=== PATIENT | female | born 1985 | race Caucasian/White ===

== ENCOUNTER 2016-10-14 13:06 | Emergency (ER) | payer MEDICAID ==
--- NOTE | 2016-10-14 13:27 | EDPHY ---
H & P Stated Complaint: ABD PAIN Time Seen by Provider: 10/14/16 13:27 HPI/ROS: CHIEF COMPLAINT: Abdominal pain, vomiting. HISTORY OF PRESENT ILLNESS: The patient is a 31-year-old female with a history of cholecystectomy presenting with epigastric pain, bloating, and vomiting for 4 days. Symptoms did mildly improve yesterday but have returned. The pain radiates straight through to her back. Vomiting briefly resolves the abdominal pain. Eating worsens it. She denies fever, chills, chest pain, recent sickness, shortness of breath, palpitations, diarrhea, urinary complaints, headache, lightheadedness, rash, peripheral edema. She was seen in the emergency department in August for the same symptoms. They ended up resolving on their own. REVIEW OF SYSTEMS: Aside from elements discussed in the HPI, a comprehensive 10-point review of systems was reviewed and is negative. PAST MEDICAL HISTORY: Cholecystectomy, ulcers, depression, . SOCIAL HISTORY: Smoker, uses marijuana, no alcohol use. VITAL SIGNS: Reviewed by me GENERAL: Well-developed, well-nourished, resting comfortably in no respiratory distress. HEENT: Atraumatic. Eyes: No icterus, no injection. Mouth: moist mucous membranes. No erythema or lesions. Neck: supple with no adenopathy. LUNGS: Clear to auscultation bilaterally, no wheezes, rhonchi or rales. CARDIAC: Regular rate and rhythm, no rubs, murmurs or gallops. ABDOMEN: Epigastric and RUQ tenderness. Soft, nondistended, bowel sounds normal. No guarding, no rebound. Hyperactive bowel sounds. BACK: No CVA tenderness. EXTREMITIES: No trauma. No edema. Range of motion is normal throughout. NEURO: Alert and oriented, grossly nonfocal. SKIN: Warm and dry, no rash. PSYCHIATRIC: Normal mentation, no agitation. Portions of this note were transcribed by a certified medical assistant. I personally performed a history, physical exam, medical decision making, and confirmed accuracy of information the transcribed note. Source: Patient Exam Limitations: No limitations - Personal History Current Tetanus/Diphtheria Vaccine: Yes - Medical/Surgical History Hx Asthma: No Hx Chronic Respiratory Disease: No Hx Diabetes: No Hx Cardiac Disease: No Hx Renal Disease: No Hx Cirrhosis: No Hx Alcoholism: No Hx HIV/AIDS: No Hx Splenectomy or Spleen Trauma: No Other PMH: SHABNAM, BILATERAL EXT FIX'S FOR CONGENITAL DEFORMITIES, [id number] DISSECANS, depression, - Social History Smoking Status: Current every day smoker Constitutional: Initial Vital Signs Temperature (C) 36.6 C 10/14/16 13:10 Heart Rate 112 H 10/14/16 13:10 Respiratory Rate 16 10/14/16 13:10 Blood Pressure 126/100 H 10/14/16 13:10 O2 Sat (%) 97 10/14/16 13:10 O2 Delivery Mode Room Air O2 (L/minute) 2 Allergies/Adverse Reactions: Penicillins Allergy (Verified 08/25/16 19:46) Sulfa (Sulfonamide Antibiotics) Allergy (Verified 08/25/16 19:46) Home Medications: Medication Instructions Recorded Ondansetron Odt [Zofran Odt] 4 mg PO Q6-8PRN PRN #8 tab 08/23/16 Cephalexin [Keflex] 500 mg PO BID 5 Days 08/24/16 Lorazepam [Ativan] 1 mg PO Q8 PRN #6 tablet 10/14/16 Ondansetron Odt [Zofran Odt 4 mg 4 mg PO Q6 PRN #8 tab 10/14/16 (RX)] Medical Decision Making - Diagnostics Imaging: Study: CT of the abdomen. Indication: Pain, vomiting. Results: No small bowel obstruction. Fecalization of small bowel. The study was read by the radiologist, Dr. Rice. I viewed the images myself on the PACS system. ED Course/Re-evaluation: An IV was established and labs ordered. 1L IV saline administered for hydration , along with 4mg IV Zofran for nausea and 100mcg IV Fentanyl for pain. Abdominal CT ordered. WBC elevated at 11.53. Urine demonstrates significant dehydration, specific gravity > 1.035 1500: CT reported to me by Dr. Rice shows no obstruction, only fecalization of small bowel. 1539: Reassessed patient. Discussed results of laboratory studies and CT scan. She is not feeling better. She is still in pain with nausea and vomiting. 1mg IV Ativan administered. Reassess after additional fluids and meds. Symptoms improved greatly. Comfortable being discharged with follow up. Looks well. Differential Diagnosis: After obtaining the patients history and performing an examination, differential diagnosis considered included but was not limited to appendicitis, small bowel obstruction, cyclic vomiting, gastritis, pancreatitis, kidney stones, urinary tract infections and other causes. - Data Points Laboratory Results: Laboratory Results 10/14/16 13:25 10/14/16 13:25 Medications Given: Discontinued Medications Fentanyl (Sublimaze) 100 mcg IVP EDNOW ONE Stop: 10/14/16 13:42 Last Admin: 10/14/16 13:47 Dose: 100 mcg Sodium Chloride (Ns) 1,000 mls @ 0 mls/hr IV ONCE ONE PRN Reason: Wide Open Stop: 10/14/16 13:31 Last Admin: 10/14/16 13:32 Dose: 1,000 mls Lorazepam (Ativan Injection) 1 mg IVP EDNOW ONE Stop: 10/14/16 15:40 Last Admin: 10/14/16 15:45 Dose: 1 mg Ondansetron HCl (Zofran) 4 mg IVP EDNOW ONE Stop: 10/14/16 13:31 Last Admin: 10/14/16 13:33 Dose: 4 mg Ondansetron HCl (Zofran) 4 mg IVP EDNOW ONE Stop: 10/14/16 15:23 Last Admin: 10/14/16 15:27 Dose: 4 mg Ondansetron HCl (Zofran Odt 4 Mg Prepack#2) 1 btl TAKEHOME EDNOW ONE Stop: 10/14/16 16:33 Last Admin: 10/14/16 16:34 Dose: 1 btl Departure - Departure Disposition: Home, Routine, Self-Care Clinical Impression: Abdominal pain, Constipation, Dehydration Condition: Good Instructions: Acute Nausea and Vomiting (ED), Acute Abdominal Pain (ED), Cannabis Abuse (ED), Obstipation (ED) Additional Instructions: Okay to use Zofran as needed for recurrent nausea. You have also been given a prescription for a few Ativan tablets to use as needed for nausea. Take the magnesium citrate as directed. Drink half of the bottle now. If you do not have significant stool output within 4 hours, you may drink the other half. For your [abdominal pain and vomiting], I suggested you start with a bland diet and advance as tolerated. This means start with clear liquids such as water, Gatorade, juice, flat non- caffeinated soda. If you tolerate clear liquids, then you may add bland foods such as bananas, rice, or toast. If you do not have any worsening of your symptoms, you may begin to resume a regular diet. Follow up with Dr. Lomeli, GI, in the next 2-3 days if symptoms are not improving. Return to the emergency department if you experience serious worsening of condition. Referrals: Matti Lomeli MD [Medical Doctor] - As per Instructions Prescriptions: Lorazepam [Ativan] 1 mg PO Q8 PRN #6 tablet PRN Reason: nausea Ondansetron Odt [Zofran Odt 4 mg (RX)] 4 mg PO Q6 PRN #8 tab PRN Reason: Nausea Report Scribed for: Mimi Marshall Report Scribed by: Francisco Gutierres Date of Report: 10/14/16 Time of Report: 13:27
[2016-10-14] MEDS ORDERED: NS 1,000 ML IV ONE (13:30)
[2016-10-14] MEDS ORDERED: ONDANSETRON 4 MG/2 ML VIAL IVP ONE ×2 (13:30→15:22)
[2016-10-14 13:40] LABS: % IMMATURE GRANULYOCYTES 0.3 % (0.0-1.1); ABSOLUTE IMMATURE GRANULOCYTES 0.04 10^3/uL (0.00-0.10); ADD DIFF? NO; ADD MORPH? NO; ADD SCAN? NO; ATYPICAL LYMPHOCYTE FLAG 10 (0-99); FRAGMENT RBC FLAG 0 (0-99); HEMATOCRIT 47.5 % (38.0-47.0); HEMOGLOBIN 15.8 g/dL (12.6-16.3); LEFT SHIFT FLG 0 (0-99); LIPEMIA HEMOLYSIS FLAG 80 (0-99); MEAN CELL HEMOGLOBIN 30.2 pg (27.9-34.1); MEAN CELL HEMOGLOBIN CONCENTR. 33.3 g/dL (32.4-36.7); MEAN CELL VOLUME 90.8 fL (81.5-99.8); MEAN PLATELET VOLUME 9.8 fL (8.7-11.7); PLATELET CLUMPS FLAG 0 (0-99); PLATELET COUNT 305 10^3/uL (150-400); RED BLOOD CELL COUNT 5.23 10^6/uL (4.18-5.33); RED CELL DISTRIBUTION WIDTH 13.7 % (11.5-15.2)
[2016-10-14] MEDS ORDERED: fentaNYL 100 MCG/2 ML INJ IVP ONE (13:41)
[2016-10-14 13:57] LABS: ALANINE AMINOTRANSFERASE 21 IU/L (9-52); ALBUMIN 3.7 g/dL (3.5-5.0); ALKALINE PHOSPHATASE 51 IU/L (38-126); ANION GAP 8 mEq/L (8-16); ASPARTATE AMINOTRANSFERASE 25 IU/L (14-46); BILIRUBIN,TOTAL 0.5 mg/dL (0.1-1.4); BILIRUBIN-CONJUGATED 0.4 mg/dL (0.0-0.5); BILIRUBIN-UNCONJUGATED 0.1 mg/dL (0.0-1.1); CALCIUM 8.6 mg/dL (8.5-10.4); CARBON DIOXIDE 23 mEq/l (22-31); CHLORIDE 111 mEq/L (97-110); CREATININE 0.6 mg/dL (0.6-1.0); GLOMERULAR FILTRATION RATE > 60; GLUCOSE 84 mg/dL (70-100); POTASSIUM 5.1 mEq/L (3.5-5.2); SODIUM 142 mEq/L (134-144); TOTAL PROTEIN 6.7 g/dL (6.3-8.2)
[2016-10-14] MEDS ORDERED: IOPAMIDOL (ISOVUE-300) 100 ML BTL IV ONE (14:31)
[2016-10-14] MEDS ORDERED: LORazepam 2 MG/ML INJ IVP ONE ×2 (15:38→15:39)
[2016-10-14] MEDS ORDERED: HYDROmorphONE/DILAUDID 1 MG/ML SYR IVP ONE (15:39)
[2016-10-14 15:54] LABS: COLOR YELLOW; LEUKOCYTE ESTERASE,URINE NEGATIVE (NEGATIVE); NITRITE,URINE NEGATIVE (NEGATIVE)
[2016-10-14 15:56] VITALS: RESP 16
--- NOTE | 2016-10-14 16:25 | CT ---
CT Scan of the Abdomen and Pelvis (With Contrast) October 14, 2016 at 1444 Hours Indication: Abdominal pain. Vomiting. History cholecystectomy. Comparison: August 2016. Technique: 90 mL of Isovue 300 were given intravenously by machine power injection. Multidetector he lical CT imaging was performed from the diaphragm to the symphysis pubis. Dose reduction techniques w ere utilized. Findings Abdomen: Mild atelectasis is seen at both lung bases. No focal liver lesion. Patient is status post c holecystectomy. Pancreas is unremarkable. Both adrenal glands are normal in size and appearance. Sple en is unremarkable. Probable renal cortical cysts are seen in both kidneys, possibly mildly complex, stable in appearance. No evidence for hydronephrosis. No significant lymphadenopathy. Pelvis: Moderate stool is seen in the colon. There is mild dilatation of the distal ileum with fecali zation of stool, suggesting constipation or less likely partial small bowel obstruction. No evidence for diverticulitis. No evidence for bladder calculus. No significant free fluid in the pelvis. Degene rative change is seen in the lumbar spine. Impression: 1. Status post cholecystectomy. Moderate constipation. 2. Probable mildly complex renal cortical cysts bilaterally, stable in appearance. Results discussed with Dr. Mimi Marshall.
[2016-10-14] MEDS ORDERED: ONDANSETRON 4MG PREPACK#2 BTL TAKEHOME ONE (16:32)
[2016-10-14 16:41] VITALS: BP 148/92; PULSE 59; TEMP 97.3; O2SAT 97
== END 2016-10-14 16:41 | disposition home or self-care (01) ==
DX: K59.00 Constipation, unspecified (principal); E86.0 Dehydration; F17.200 Nicotine dependence, unspecified, uncomplicated; Z90.49 Acquired absence of other specified parts of digestive tract
CPT/HCPCS: 96374; J2405; J3010; Q9967

== ENCOUNTER 2016-11-08 09:38 | Emergency (ER) | payer MEDICAID ==
[2016-11-08] MEDS ORDERED: NS 1,000 ML IV ONE (09:55)
[2016-11-08] MEDS ORDERED: IPRATROPIUM/ALBUTEROL 3 ML DEYVIAL IH ONE (09:55)
--- NOTE | 2016-11-08 12:16 | EDPHY ---
H & P Stated Complaint: COUGH FOR PAST 3 WEEKS, NOW COUGHING UP BLOOD HPI/ROS: Chief complaint: Cold symptoms History of present illness: This is a 31-year-old female who presents to the emergency department for evaluation of persistent cold symptoms. Patient reports she has been sick for the last 3 weeks. She has had fevers, sore throat , persistent wet cough. She denies precipitating factors. She denies alleviating factors. She denies other associated signs or symptoms including no respiratory distress, no rash. - Personal History LMP (Females 10-55): 22-28 Days Ago Current Tetanus/Diphtheria Vaccine: Yes Current Tetanus Diphtheria and Acellular Pertussis (TDAP): Yes - Medical/Surgical History Hx Asthma: No Hx Chronic Respiratory Disease: No Hx Diabetes: No Hx Cardiac Disease: No Hx Renal Disease: No Hx Cirrhosis: No Hx Alcoholism: No Hx HIV/AIDS: No Hx Splenectomy or Spleen Trauma: No Other PMH: SHABNAM, BILATERAL EXT FIX'S FOR CONGENITAL DEFORMITIES, [id number] DISSECANS, depression, - Social History Smoking Status: Current every day smoker - Physical Exam Exam: General Appearance: Alert, nontoxic. Eyes: Pupils equal and round no injection. Respiratory: Patient is talking in full sentences. There is no use of accessary muscles. No evidence of respiratory distress. A wet sounding cough is noted. There is diffuse inspiratory and expiratory wheezing without rhonchi or rales. Cardiac: regular rate and rhythm Gastrointestinal: Abdomen is soft and non tender, no masses, bowel sounds normal. Musculoskeletal: Neck is supple and non tender. Extremities have full range of motion and are non tender. Skin: No rashes or lesions. Neurological: Alert and oriented x4. Strength and sensation intact and symmetrical. No meningismus. Ambulating without difficulty. Constitutional: Initial Vital Signs Temperature (C) 37.1 C 11/08/16 09:39 Heart Rate 115 H 11/08/16 09:39 Respiratory Rate 18 11/08/16 09:39 Blood Pressure 132/86 H 11/08/16 09:39 O2 Sat (%) 97 11/08/16 09:39 O2 Delivery Mode Room Air Allergies/Adverse Reactions: Penicillins Allergy (Verified 11/08/16 09:43) Sulfa (Sulfonamide Antibiotics) Allergy (Verified 11/08/16 09:43) Home Medications: Medication Instructions Recorded AZITHROMYCIN [Z-PACK] 250 mg PO DAILY #6 tab 11/08/16 Albuterol [Ventolin Hfa Inhaler] 200 puffs IH Q4 #1 mdi 11/08/16 Guaifenesin/Codeine Phosphate 5 ml PO Q4-6PRN PRN #120 liquid 11/08/16 [Guaifenesin-Codeine Syrup] Medical Decision Making - Diagnostics Imaging: Chest x-ray unremarkable ED Course/Re-evaluation: Patient is seen under the supervision of my secondary supervising physician Dr. Diogenes Hayden. Patient presents to the emergency department for evaluation of cold symptoms. Patient is nontoxic. Chest x-ray is unremarkable. However given persistence of symptoms I will start her on antibiotics. She will be symptomatically treated with an inhaler and cough medication. She is discharged home. Home care is discussed. She is asked to follow up with a primary care doctor for recheck. Return precautions are given. Patient voiced understanding and agreement with plan. Differential Diagnosis: Included but not limited to pneumonia, bronchitis, influenza - Data Points Medications Given: Discontinued Medications Albuterol/Ipratropium (Duoneb) 3 ml IH EDNOW ONE Stop: 11/08/16 09:56 Last Admin: 11/08/16 10:01 Dose: 3 ml Sodium Chloride (Ns) 1,000 mls @ 0 mls/hr IV ONCE ONE PRN Reason: Wide Open Stop: 11/08/16 09:56 Last Admin: 11/08/16 10:02 Dose: 1,000 mls Departure - Departure Disposition: Home, Routine, Self-Care Clinical Impression: Acute bronchitis Qualifiers: Bronchitis organism: unspecified organism Qualified Code(s): J20.9 - Acute bronchitis, unspecified Condition: Good Instructions: Acute Bronchitis (ED) Additional Instructions: Follow-up with your primary care doctor for recheck If symptoms worsen or new symptoms develop return to the emergency department for recheck Referrals: [facility] [Other] - As per Instructions Stand Alone Forms: School Excuse, Work Excuse Prescriptions: Albuterol [Ventolin Hfa Inhaler] 200 puffs IH Q4 #1 mdi AZITHROMYCIN [Z-PACK] 250 mg PO DAILY #6 tab Guaifenesin/Codeine Phosphate [Guaifenesin-Codeine Syrup] 5 ml PO Q4-6PRN PRN # 120 liquid PRN Reason: Cough, Severe
[2016-11-08 12:28] VITALS: BP 127/68; PULSE 88; RESP 16; TEMP 99.3; O2SAT 96
== END 2016-11-08 12:28 | disposition home or self-care (01) ==
DX: J20.9 Acute bronchitis, unspecified (principal); F17.200 Nicotine dependence, unspecified, uncomplicated

== ENCOUNTER 2017-02-14 01:44 | Emergency (ER) | payer MEDICAID ==
--- NOTE | 2017-02-14 02:23 | EDPHY ---
H & P Stated Complaint: syncope, elbow pain LIANA under arm abcesses HPI/ROS: HPI CHIEF COMPLAINT: Multiple complaints HISTORY OF PRESENT ILLNESS: Patient very pleasant 31-year-old female significant past medical history for depression, cholecystectomy, presents to the emergency room in multiple planes. She states around 6:00 p.m. earlier today she was at the gas station she had a syncopal episode. She felt again ground with right elbow strike. No seizure activity did not lose bowel bladder incontinence did not have any chest pain or shortness of breath. Patient tells me that main complaint is right elbow pain. Additionally she reports that she has an abscess under right axilla that she gets when she gets stressed. Requesting antibiotics for this. Currently upon arrival to the emergency room she denies chest pain or shortness of breath. Denies dizziness. Denies headache or neck pain. Main complaint is right elbow pain, an abscess under right axilla. She tells me she is unsure exactly what caused her pass out earlier today. No history of syncope or sudden cardiac or cardiac arrhythmia. Patient tells me she decided come the emergency room at 2:30 a.m. in the morning after this event happened 6 o'clock tonight as her elbow is been throbbing her causing her pain. Past Medical History: Depression, previous history multiple axillary abscess. Past Surgical History: Lower extremity ex fix, cholecystectomy, right elbow surgery Social History: Endorses tobacco, denies alcohol or other illicit drugs Family History: Noncontributory ROS REVIEW OF SYSTEMS: A comprehensive 10 point review of systems is otherwise negative aside from elements mentioned in the history of present illness. Exam Constitutional triage nursing summary reviewed, vital signs reviewed, awake/ alert. Eyes normal conjunctivae and sclera, EOMI, PERRLA. HENT normal inspection, atraumatic, moist mucus membranes, no epistaxis, neck supple/ no meningismus, no raccoon eyes. Respiratory clear to auscultation bilaterally, normal breath sounds, no respiratory distress, no wheezing. Cardiovascular rate normal, regular rhythm, no murmur, no edema, distal pulses normal. Gastrointestinal soft, non-tender, no rebound, no guarding, normal bowel sounds, no distension, no pulsatile mass. Genitourinary no CVA tenderness. Musculoskeletal right elbow: Tender palpation over the olecranon, full range of motion, no significant swelling, distally right arm is neurovascular intact, no midline vertebral tenderness, full range of motion, no calf swelling, no tenderness of extremities, no meningismus, good pulses, neurovascularly intact. 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 Neurologic awake, alert and oriented x 3, AAOx3, moves all 4 extremities equally, motor intact, sensory intact, CN II-XII intact, normal cerebellar, normal vision, normal speech. Psychiatric normal mood/affect. Heme/Lymph/Immune no lymphadenopathy. Differential Diagnosis: Includes but is not limited to in a particular order, elbow fracture, elbow contusion, soft tissue injury, axillary infection, axillary abscess, hydranatis Suppurtiva. Medical Decision Making: Plan for this patient EKG due to syncope earlier, no indication for blood work given she denies chest pain or shortness of breath will x-ray her right elbow will also place her on Keflex and warm compresses for axillary infection. Re-evaluation: EKG interpretation by me on record in [employer] system. Impression time of EKG 2:30 a.m., this is sinus rhythm rate of 85 QT interval 412 QTCF: 463. No acute ischemic changes appreciated. No signs of Brugada. Will see if old EKG shows prolonged QT interval. ED x-ray right elbow: Negative for acute fracture. Image interpreted by myself. 0318: Plan for this patient this time Keflex has been given here in the emergency room for her infection under her right axilla. Keflex take-home pack. Ibuprofen for pain control. Patient be placed in a posterior long-arm splint and sling for comfort. Her x- ray did not appreciate a fracture however given the amount of pain I cannot rule out occult elbow fracture. Patient be placed in a splint follow up with Orthopedics. She understands. Source: Patient - Personal History LMP (Females 10-55): Now Current Tetanus/Diphtheria Vaccine: Yes Current Tetanus Diphtheria and Acellular Pertussis (TDAP): Yes - Medical/Surgical History Hx Asthma: Yes Hx Chronic Respiratory Disease: No Hx Diabetes: No Hx Cardiac Disease: No Hx Renal Disease: No Hx Cirrhosis: No Hx Alcoholism: No Hx HIV/AIDS: No Hx Splenectomy or Spleen Trauma: No Other PMH: SHABNAM, BILATERAL EXT FIX'S FOR CONGENITAL DEFORMITIES, [id number] DISSECANS, depression, - Social History Smoking Status: Current every day smoker Constitutional: Initial Vital Signs Temperature (C) 36.7 C 02/14/17 02:00 Heart Rate 97 02/14/17 02:00 Respiratory Rate 16 02/14/17 02:00 Blood Pressure 139/91 H 02/14/17 02:00 O2 Sat (%) 98 02/14/17 02:00 O2 Delivery Mode Room Air Allergies/Adverse Reactions: Penicillins Allergy (Verified 02/14/17 01:59) Sulfa (Sulfonamide Antibiotics) Allergy (Verified 02/14/17 01:59) Home Medications: Medication Instructions Recorded Albuterol 02/14/17 Cephalexin [Keflex] 500 mg PO Q6H #28 cap 02/14/17 Ibuprofen [Motrin (*)] 800 mg PO Q6-8PRN #7 tab 02/14/17 Medical Decision Making - Data Points Medications Given: Discontinued Medications Hydrocodone Bitart/Acetaminophen ([place] 5/325) 1 tab PO EDNOW ONE Stop: 02/14/17 02:30 Last Admin: 02/14/17 03:00 Dose: 1 tab Cephalexin HCl (Keflex) 500 mg PO EDNOW ONE PRN Reason: Protocol Stop: 02/14/17 02:30 Last Admin: 02/14/17 03:00 Dose: 500 mg Departure - Departure Disposition: Home, Routine, Self-Care Clinical Impression: Axillary abscess Elbow contusion Qualifiers: Encounter type: initial encounter Laterality: right Qualified Code(s): S50.01XA - Contusion of right elbow, initial encounter Condition: Good Instructions: Elbow Sprain (ED), Abscess (ED), Arthralgia (ED) Additional Instructions: 1. Use warm compresses 4 times a day for 20 minutes. 2. Take antibiotic as prescribed 3. Return emergency room if you have worsening symptoms includes syncope, or worsening pain. Referrals: [facility] [Other] - As per Instructions Cristofer Hdez MD [Medical Doctor] - As per Instructions Prescriptions: Cephalexin [Keflex] 500 mg PO Q6H #28 cap Ibuprofen [Motrin (*)] 800 mg PO Q6-8PRN #7 tab
[2017-02-14] MEDS ORDERED: CEPHALEXIN 500MG PREPACK#4 BTL TAKEHOME ONE (02:29)
[2017-02-14] MEDS ORDERED: HYDROCODONE/APAP 5/325 TAB PO ONE (02:29)
[2017-02-14] MEDS ORDERED: CEPHALEXIN 500 MG CAP PO ONE (02:29)
--- NOTE | 2017-02-14 02:40 | CPEKG ---
Heart Rate: 85 RR Interval: 706 P-R Interval: 176 QRSD Interval: 80 QT Interval: 412 QTC Interval: 490 P [place]: 57 QRS [place]: 41 T Wave [place]: 20 EKG Severity - BORDERLINE ECG - EKG Impression: SINUS RHYTHM EKG Impression: BORDERLINE PROLONGED QT INTERVAL Electronically Signed By: Damion Fisher 14-Feb-2017 07:31:02
[2017-02-14 03:35] VITALS: BP 106/76; PULSE 86; RESP 18; TEMP 98.2; O2SAT 95
== END 2017-02-14 04:04 | disposition home or self-care (01) ==
DX: L02.411 Cutaneous abscess of right axilla (principal); S50.01XA Contusion of right elbow, initial encounter; F17.200 Nicotine dependence, unspecified, uncomplicated; J45.909 Unspecified asthma, uncomplicated; W22.8XXA Striking against or struck by other objects, initial encounter
CPT/HCPCS: A4565

== ENCOUNTER 2017-11-02 23:53 | Emergency (ER) | payer MEDICAID ==
[2017-11-02 23:59] VITALS: BP 153/97; PULSE 98; RESP 18; TEMP 99; O2SAT 97
--- NOTE | 2017-11-03 00:13 | EDPHY ---
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 Patient states she is due doing well but has noticed for the last 2 days at her right arm as more swollen than her left. She also states she had a mechanical fall and fell onto her bilateral was earlier this evening. She is complaining of mild bilateral elbow pain and right arm swelling. No fevers or chills. Does have some redness in her antecubital fossa. She has been wearing an Jasen bandage around that elbow. No other pain or streaking. No chest pain or shortness of breath. She has been able to use bilateral arms since her injury. ROS: 10 point Review of Systems is negative except as noted in the HPI. Family History: non-contributory Physical Exam: Gen: Awake, Alert, No Distress HEENT: Nose: no rhinorrhea Eyes: PERRLA, EOMI Mouth: Moist mucosa Neck: Supple, no JVD Chest: nontender, lungs clear to auscultation Heart: S1, S2 normal, no murmur Abd: Soft, non-tender, no guarding Back: no CVA tenderness, no midline tenderness Ext: Right olecranon sutures intact. She has no reproducible bony tenderness. Full range of motion of pain. Her right forearm is 1 cm larger than her left forearm. She also has mild erythema in her antecubital fossa. There is no streaking or lymphadenopathy. Left elbow has no bony tenderness, full range of motion without pain. Skin: no rash Neuro: CN II-XII intact, Sensation grossly intact, Strength 5/5 in bilateral upper and lower extremities - Personal History LMP (Females 10-55): 8-14 Days Ago Current Tetanus/Diphtheria Vaccine: Yes Current Tetanus Diphtheria and Acellular Pertussis (TDAP): Yes - Medical/Surgical History Hx Asthma: Yes Hx Chronic Respiratory Disease: No Hx Diabetes: No Hx Cardiac Disease: No Hx Renal Disease: No Hx Cirrhosis: No Hx Alcoholism: No Hx HIV/AIDS: No Hx Splenectomy or Spleen Trauma: No Other PMH: SHABNAM, BILATERAL EXT FIX'S FOR CONGENITAL DEFORMITIES, [id number] DISSECANS, depression, - Social History Smoking Status: Current every day smoker Constitutional: Initial Vital Signs Temperature (C) 37.2 C 11/02/17 23:54 Heart Rate 98 11/02/17 23:54 Respiratory Rate 18 11/02/17 23:54 Blood Pressure 153/97 H 11/02/17 23:54 O2 Sat (%) 97 11/02/17 23:54 O2 Delivery Mode Room Air Allergies/Adverse Reactions: Penicillins Allergy (Verified 02/14/17 01:59) Sulfa (Sulfonamide Antibiotics) Allergy (Verified 02/14/17 01:59) Home Medications: Medication Instructions Recorded Ativan 0.5 mg 11/02/17 [place] 5/325 (*) 11/02/17 Medical Decision Making - Diagnostics Imaging Results: There is no evidence of DVT on her right upper extremity ultrasound per Dr. Lira. ED Course/Re-evaluation: Ultrasound is negative. Patient has no reproducible bony tenderness suggestive of fracture. She has been reassured. Will discharge with follow-up with her doctor for any concerns. Departure - Departure Disposition: Home, Routine, Self-Care Clinical Impression: Elbow pain, Arm swelling Condition: Good Instructions: Contusion in Adults (ED) Additional Instructions: Follow up with primary care physician in 3-4 days if symptoms are not improving. Referrals: [facility] [Other] - As per Instructions
== END 2017-11-03 00:56 | disposition home or self-care (01) ==
DX: S59.901A Unspecified injury of right elbow, initial encounter (principal); M79.89 Other specified soft tissue disorders; F17.200 Nicotine dependence, unspecified, uncomplicated; J45.909 Unspecified asthma, uncomplicated; W18.39XA Other fall on same level, initial encounter

== ENCOUNTER 2017-11-26 15:19 | Emergency (ER) | payer MEDICAID ==
[2017-11-26] MEDS ORDERED: KETOROLAC 30 MG/1 ML SDV IVP ONE (15:46)
[2017-11-26] MEDS ORDERED: NS 1,000 ML IV ONE (15:46)
[2017-11-26] MEDS ORDERED: DEXAMETHASONE 10 MG/ML VIAL IVP ONE (15:46)
--- NOTE | 2017-11-26 15:51 | EDPHY ---
H & P Time Seen by Provider: 11/26/17 15:40 HPI/ROS: HPI Sore throat, cough, congestion. 32-year-old female by private vehicle. She reports that she has had nasal congestion with clear rhinorrhea and a dry, mostly nonproductive cough for the last week. She reports that this morning at about 5:00 a.m. She developed a sore throat which has been worsening throughout the day. She is now having difficulty swallowing liquids because of the pain in her throat. She denies any voice changes. No stridor. No difficulty breathing. She has not had a fever. ROS: Constitutional: No fever, no chills. No weakness. Eyes: No discharge. No changes in vision. ENT: As above. Respiratory: As above. No shortness of breath. Cardiac: No chest pain, no palpitations. Gastrointestinal: No abdominal pain, no vomiting, no diarrhea. Genitourinary: No hematuria. No dysuria or increased frequency with urination. Musculoskeletal: No back pain. No neck pain. No myalgias or arthralgias. Skin: No rashes. Neurological: No headache. No focal weakness or altered sensation. Past medical history: Depression, , cholecystectomy, osteochondritis dissecans, orthopedic surgeries. Social history: Nonsmoker. Here by herself. Denies alcohol. Physical Exam: General Appearance: Alert, no distress. This patient is responding to questions appropriately and in full sentences. This patient appears well- hydrated and well-nourished. Eyes: Pupils equal and round no pallor or injection. No lid edema, erythema or injection. ENT, Mouth: Mucous membranes are moist. Diffuse pharyngeal erythema with posterior pharyngeal exudates worse on the left versus the right and scant tonsillar exudates. No asymmetry indicative of abscess. No voice changes. No stridor on auscultation of her neck. No submental, submandibular, cervical lymphadenopathy. Respiratory: There are no retractions, lungs are clear to auscultation with good air movement bilaterally. Intermittent wet sounding cough. Cardiovascular: Regular rate and rhythm. No murmur. Neurological: Motor sensory function is grossly intact. Cranial nerves are normal. Gait is normal. Skin: Warm and dry, no rashes. Musculoskeletal: Neck is supple and nontender. Extremities are symmetrical. All joints range without pain or impingement. Psychiatric: No agitation. No depression. Database: EKG: Imaging: Chest x-ray PA and lateral; the cardiac mediastinal silhouette is unremarkable. No evidence of infiltrate or pneumothorax. Mild bronchitis. No other acute cardiopulmonary disease process noted. Interpreted by me. Procedures: Emergency department course: Vital signs reviewed. The patient is mildly tachycardic and mildly tachypneic in triage. An IV was placed. Strep swab obtained. I will also evaluate her for mononucleosis. She will be started on IV normal saline with 1-2 L to be given over the next 1-2 hours. She will initially be given 30 mg of IV Toradol and 10 mg of IV Decadron. She does not have any contraindications to NSAIDs. 5:25 p.m., the patient states that she still has a sore throat but is feeling better. She was given 2 Vicodin tablets for additional analgesia. She is not driving. 5:45 p.m., patient re-evaluated. Resting comfortably at this time. Results of her diagnostic workup discussed with her. Etiology of her pharyngitis is likely viral. I do not feel that antibiotics are indicated at this time. Her tachycardia has resolved. She is not tachypneic. Repeat pharyngeal exam, no stridor. No voice changes. She is feeling much better at this time. She does feel comfortable going home and I feel she is safe for discharge. Follow-up and return to emergency department precautions reviewed with her. All of her questions were answered. She was discharged in good condition. Differential Diagnosis: The differential diagnosis on this patient includes but is not limited to mononucleosis, other viral pharyngitis, streptococcal pharyngitis, influenza. Peritonsillar abscess, retropharyngeal abscess, epiglottitis, tracheitis unlikely. This represents a partial list of diagnoses considered. These considerations are based on history, physical exam, past history, reassessment and diagnostic testing. Smoking Status: Current every day smoker Constitutional: Initial Vital Signs Temperature (C) 36.9 C 11/26/17 15:37 Heart Rate 102 H 11/26/17 15:37 Respiratory Rate 24 H 11/26/17 15:37 Blood Pressure 149/88 H 11/26/17 15:37 O2 Sat (%) 95 11/26/17 15:37 O2 Delivery Mode Room Air Allergies/Adverse Reactions: Penicillins Allergy (Verified 11/26/17 15:35) Sulfa (Sulfonamide Antibiotics) Allergy (Verified 11/26/17 15:35) Home Medications: Medication Instructions Recorded Ativan 0.5 mg 11/02/17 [place] 5/325 (*) 11/02/17 Buspar (*) 11/26/17 Dexamethasone [Decadron 4 MG (RX)] 8 mg PO ONCE #2 tab 11/26/17 Ibuprofen 11/26/17 Xanax 11/26/17 Medical Decision Making - Diagnostics Imaging Results: Imaging Impressions Chest X-Ray 11/26/17 15:47 Impression: Minimal airways disease/bronchitis. Otherwise normal. - Data Points Laboratory Results: 11/26/17 11/26/17 11/26/17 Unknown 16:05 15:45 Monoscreen NEGATIVE (NEGATIVE) Group A Strep Screen NEGATIVE (NEGATIVE) Group A Strep DNA Pending Medications Given: Discontinued Medications Dexamethasone (Decadron Injection) 10 mg IVP EDNOW ONE Stop: 11/26/17 15:47 Last Admin: 11/26/17 16:31 Dose: 10 mg Sodium Chloride (Ns) 1,000 mls @ 0 mls/hr IV ONCE ONE; Wide Open PRN Reason: Protocol Stop: 11/26/17 15:47 Last Admin: 11/26/17 16:30 Dose: 1,000 mls Ketorolac Tromethamine (Toradol) 30 mg IVP EDNOW ONE Stop: 11/26/17 15:47 Last Admin: 11/26/17 16:31 Dose: 30 mg Departure - Departure Disposition: [facility] Inpatient Acute Clinical Impression: Pharyngitis, Upper respiratory infection Condition: Good Instructions: Pharyngitis (ED), Upper Respiratory Infection (ED) Additional Instructions: Read and follow provided instructions. Follow-up with your primary care physician in 1-2 days for re-evaluation. 1 time dose of Decadron to be taken tomorrow afternoon. Do not take ibuprofen until tomorrow morning. Ibuprofen dosin mg every 6 hours with meals for the next 3 days only. Take only as needed for pain. Return to the emergency department for worsening symptoms, worsening sore throat , difficulty swallowing, voice changes, stridor, difficulty breathing or other serious concerns. Referrals: NONE *PRIMARY CARE P,. [Primary Care Provider] - As per Instructions Prescriptions: Dexamethasone [Decadron 4 MG (RX)] 8 mg PO ONCE #2 tab
[2017-11-26 16:44] VITALS: RESP 20
[2017-11-26] MEDS ORDERED: HYDROCODONE/APAP 5/325 TAB PO ONE (17:38)
[2017-11-26 17:52] VITALS: BP 146/98; PULSE 95; TEMP 98.6; O2SAT 93
== END 2017-11-26 18:04 | disposition still patient (30) ==
LOC: CED 15:19
DX: J02.9 Acute pharyngitis, unspecified (principal); J06.9 Acute upper respiratory infection, unspecified; F17.200 Nicotine dependence, unspecified, uncomplicated; E86.9 Volume depletion, unspecified
CPT/HCPCS: 71046-PO; 86308-PO; 87880-PO; 96374; J1100; J1885

== ENCOUNTER 2017-11-30 17:28 | Emergency (ER) | payer MEDICAID ==
[2017-11-30 17:36] VITALS: BP 164/102; PULSE 94; RESP 18; TEMP 99; O2SAT 94
--- NOTE | 2017-11-30 18:01 | EDPHY ---
H & P Time Seen by Provider: 11/30/17 17:33 HPI/ROS: 32-year-old female presents complaining of ongoing cough, sore throat, now for approximately 7 days she was seen here earlier this week and treated for her sore throat with IV fluids and Decadron. At that time her strep test was negative and her mononucleosis was also negative. Review of systems As per HPI General positive fever positive chills o weakness HEENT no eye pain no eye discharge. No eye redness, positive sore throat Respiratory positive cough no shortness of breath Cardiac no chest pain, no peripheral edema GI no abdominal pain, no diarrhea, no constipation, no nausea, no vomiting no flank pain, no hematuria, no dysuria Musculoskeletal no myalgias, no joint pain Heme no easy bruising, no easy bleeding Endo no polyuria, no polydipsia Skin no rashes, no pruritus Neuro no syncope, no dizziness, no headaches Psych is no suicidal ideation, no homicidal ideation Past Medical/Surgical History: Depression, , cholecystectomy Osteochondritis desiccans Social History: Smokes daily Smoking Status: Current every day smoker Physical Exam: 32-year-old female Alert and oriented nontoxic appearance, no acute distress afebrile Atraumatic normocephalic Extraocular muscles intact, anicteric Nares mild yellowish discharge Oropharynx mild erythema with mild tonsillar swelling and prominent crypts no exudate no uvular deviation, tolerating own secretions Neck supple positive anterior cervical lymphadenopathy no posterior lymphadenopathy Lungs clear to auscultation bilaterally Heart regular rate and rhythm Abdomen normoactive bowel sounds soft nontender Extremities no cyanosis clubbing or edema Skin no rash Constitutional: Initial Vital Signs Temperature (C) 37.2 C 11/30/17 17:33 Heart Rate 94 18 17:33 Respiratory Rate 18 11/30/17 17:33 Blood Pressure 164/102 H 11/30/17 17:33 O2 Sat (%) 94 11/30/17 17:33 O2 Delivery Mode Room Air Allergies/Adverse Reactions: Penicillins Allergy (Verified 11/30/17 17:33) Sulfa (Sulfonamide Antibiotics) Allergy (Verified 11/30/17 17:33) Home Medications: Medication Instructions Recorded Ativan 0.5 mg 11/02/17 [place] 5/325 (*) 11/02/17 Buspar (*) 03/13/18 Dexamethasone [Decadron 4 MG (RX)] 8 mg PO ONCE #2 tab 11/26/17 Ibuprofen 11/26/17 Xanax 11/26/17 Doxycycline Hyclate [Vibramycin 100 mg PO BID 9 Days #18 cap 11/30/17 100 MG (*)] Fluticasone Nasal [Flonase Nasal 2 sprays NASAL DAILY #1 mdi 11/30/17 [place] (RX)] Medical Decision Making - Diagnostics Imaging Results: Imaging Impressions Chest X-Ray 11/30/17 17:45 Impression: Mild bronchitis. No other findings for acute cardiopulmonary abnormality. ED Course/Re-evaluation: Patient seen and evaluated for cough and sore throat Strep negative Influenza negative Chest x-ray consistent with bronchitis Impression Bronchitis, pharyngitis Plan Continue symptomatic care Will add doxycycline since patient is a daily smoker Doxycycline 100 twice daily times 10 days Fluticasone spray for nasal congestion Follow-up with your primary care clinic in 3-6 days Differential Diagnosis: Differential diagnosis considered but not limited to: URI, pharyngitis, peritonsillar abscess, bronchitis, pneumonia, influenza, viral syndrome - Data Points Laboratory Results: 11/30/17 11/30/17 11/30/17 Unknown 17:40 17:35 Influenza A,B Rapid NEGATIVE FOR FLU (NEGATIVE) Group A Strep Screen NEGATIVE (NEGATIVE) Group A Strep DNA Pending Departure - Departure Disposition: Home, Routine, Self-Care Clinical Impression: Bronchitis, Pharyngitis Condition: Good Instructions: Pharyngitis (ED), Acute Bronchitis (ED) Additional Instructions: Follow up with your clinic if not improving in 3-6 days. Referrals: JOSH GUTIERREZ [Other] - As per Instructions Prescriptions: Doxycycline Hyclate [Vibramycin 100 MG (*)] 100 mg PO BID 9 Days #18 cap Fluticasone Nasal [Flonase Nasal [place] (RX)] 2 sprays NASAL DAILY #1 mdi
== END 2017-11-30 18:18 | disposition home or self-care (01) ==
LOC: CED 17:28
DX: J20.9 Acute bronchitis, unspecified (principal); F17.200 Nicotine dependence, unspecified, uncomplicated
CPT/HCPCS: 71046-PO; 87400-PO; 87880-PO

== ENCOUNTER 2018-07-23 19:42 | Emergency (ER) | payer MEDICAID ==
[2018-07-23] MEDS ORDERED: VANCOMYCIN IV ONE (20:08)
[2018-07-23] MEDS ORDERED: NS IV ONE (20:08)
[2018-07-23] MEDS ORDERED: NS 2,000 ML IV ONE (20:09)
[2018-07-23 21:53] LABS: PLATELET COUNT 314 10^3/uL (150-400)
--- NOTE | 2018-07-23 22:05 | EDPHY ---
H & P Time Seen by Provider: 07/23/18 20:02 HPI/ROS: This patient describes onset of redness and slightly burning discomfort to her left buttock over the last 2 days. She reports that she scratches the area and thinks she may have caused superficial abrasion prior to the onset of the redness. She reports associated subjective fevers associated with the symptoms. She has never had cellulitis before. She came in by private vehicle for evaluation. She reports that she took ibuprofen and Tylenol more than 6 hr prior to arrival with partial relief a currently complains of moderate pain to the area. ROS: Constitutional: She complains of mild myalgias and subjective fevers. No significant fatigue HEENT no complaints Pulmonary: No complaints new line cardiovascular: No lightheadedness GI: No nausea or vomiting Integumentary: No skin rash elsewhere. 10 point review of symptoms is performed and otherwise negative with exception of pertinent positives and negatives listed in HPI and ROS Past Medical/Surgical History: Anxiety. Otherwise healthy Social History: No IV drug use Smoking Status: Heavy smoker Physical Exam: General Appearance: Alert, no distress. Eyes: Pupils equal and round no pallor or injection. ENT, Mouth: Mucous membranes moist. Respiratory: There are no retractions, lungs are clear to auscultation. Cardiovascular: Regular rate and rhythm. Gastrointestinal: Abdomen is soft and nontender, no masses, bowel sounds normal. Neurological: GCS 15 Skin: Patient has superficial abrasions consistent with scratch infante to her left buttock with slight scabbing with confluent erythema covering the left buttock associated warmth to touch but no fluctuance. Musculoskeletal: Neck is supple nontender. Extremities are symmetrical, full range of motion. Psychiatric: Patient is mildly anxious. Mood and affect are otherwise normal DIFFERENTIAL DIAGNOSIS: After history and physical exam differential diagnosis was considered for cellulitis, MRSA, superficial abrasions, sepsis Constitutional: Initial Vital Signs Temperature (C) 36.8 C 07/23/18 19:53 Heart Rate 108 H 07/23/18 19:53 Respiratory Rate 16 07/23/18 19:53 Blood Pressure 154/99 H 07/23/18 19:53 O2 Sat (%) 99 07/23/18 19:53 O2 Delivery Mode Room Air Allergies/Adverse Reactions: Penicillins Allergy (Intermediate, Verified 07/23/18 19:51) Rash Sulfa (Sulfonamide Antibiotics) Allergy (Intermediate, Verified 07/23/18 19:51) Rash Home Medications: Medication Instructions Recorded Ibuprofen 11/26/17 Xanax 11/26/17 Clindamycin 300 mg PO Q8 #60 cap 07/23/18 MDM/Departure - MDM Medications Given: Discontinued Medications Vancomycin HCl 2 gm/ Sodium (Chloride) 250 mls @ 250 mls/hr IV EDNOW ONE PRN Reason: Protocol Stop: 07/23/18 21:07 Last Admin: 07/23/18 20:48 Dose: 250 mls Sodium Chloride (Ns) 2,000 mls @ 0 mls/hr IV ONCE ONE; Wide Open PRN Reason: Protocol Stop: 07/23/18 20:10 Last Admin: 07/23/18 20:49 Dose: 2,000 mls ED Course/Re-evaluation: IV vancomycin Review of her labs reveals normal CBC, normal lactate, blood cultures pending Discussion: Given the patient's medication allergies and significant cellulitis gave her initial dose of vancomycin. After workup, no evidence of sepsis or other red flag findings. Will start her on clindamycin oral antibiotics for cellulitis. I counseled her regarding this. I also suggested local wound care for superficial abrasions with bacitracin and warm packs. She understands need to return emergency department should she develop worsening symptoms despite treatment plan. - Depart Disposition: Home, Routine, Self-Care Clinical Impression: Cellulitis of buttock, left Condition: Good Instructions: Cellulitis (ED) Additional Instructions: Diagnosis: Cellulitis of buttock Plan: Apply warm packs to the affected area. Apply bacitracin to the crusty areas. Take clindamycin antibiotic starting tomorrow morning. Be sure that you take yogurt and/or probiotic while on this medication to prevent diarrhea or other complications that can occur from this antibiotic clearing out the healthy bacteria in her bowel. The probiotic and yogurt replace the healthy bacteria in her bowel. Return if he develops any significant worsening of symptoms despite the treatment plan Prescriptions: Clindamycin 300 mg PO Q8 #60 cap Referrals: JOSH GUTIERREZ [Other] - As per Instructions
[2018-07-23] MEDS ORDERED: BACITRACIN OINTMENT 1 PACKET TP ONE (22:22)
[2018-07-23 22:29] VITALS: BP 134/68
== END 2018-07-23 22:27 | disposition home or self-care (01) ==
LOC: CED 19:42
DX: L03.317 Cellulitis of buttock (principal); F17.200 Nicotine dependence, unspecified, uncomplicated
CPT/HCPCS: 83605-PO; 96365; J3370